=== PATIENT | male | born 2000 | race Caucasian/White ===

== ENCOUNTER 2020-02-08 02:39 | Emergency (ER) | payer SELFPAY ==
[~2020-02-08] VITALS: Ht 157.5 cm; Wt 54.4 kg
[2020-02-08 02:39] VITALS: BP_SYST 145
--- NOTE | 2020-02-08 02:39 | NUR ---
Patient brought in by police to the ED c/o a irritable rash to the bilateral wrists since Friday. Denied any alleviating or exacerbating factors. Per police, the patient was taken into custody to [place] police station on Friday. Patient stated he developed a rash on Friday when he had the cuffs taken off when placed in the cell. He denied history of eczema. Otherwise, denied fever, chills, throat tightening, sore throat, abdominal pain, shortness of breath, or any other complaints. Awaiting ER MD to [facility].
--- NOTE | 2020-02-08 02:51 | NUR ---
ER at bedside examining patient.
[2020-02-08 03:18] VITALS: BP_SYST 135
--- NOTE | 2020-02-08 03:18 | NUR ---
Patient medically cleared, was given written and verbal discharge instructions and verbalizes understanding. ER MD discussed with patient the results and treatment provided. Patient in stable condition. ID arm band removed. Rx of Triamcinolone Acetonide 0.1% topical cream given. Patient educated on pain management and to follow up with PMD. Pain Scale 0/10. Opportunity for questions provided and answered. Pt accompanied by law enforcement officers, in handcuffs.
== END 2020-02-08 03:18 ==
LOC: SED 02:39
DX: L30.9 Dermatitis, unspecified (principal)
CPT/HCPCS: 99283